=== PATIENT | female | born 1995 | race Native Hawaiian/Other Pacific Islander ===

== ENCOUNTER 2020-01-03 23:05 | Emergency (ER) | payer OTHER ==
[~2020-01-03] VITALS: Ht 170.2 cm; Wt 94.3 kg
[2020-01-03 23:37] LABS: PLATELET COUNT 289 K/uL (152-353)
[2020-01-04 00:16] LABS: POTASSIUM 3.6 mmol/L (3.6-5.2)
[2020-01-04 05:06] VITALS: BP 137/72; TEMP 98.2
== END 2020-01-04 05:07 | disposition home or self-care (01) ==
LOC: ED 23:05
PROVIDERS: Hospitalist
DX: K59.00 Constipation, unspecified (principal); R10.30 Lower abdominal pain, unspecified
CPT/HCPCS: 36415; 80053; 81000; 81025; 82150; 83690; 85027; 96360; 96375; 99284; J1885; J2405; Q9963